=== PATIENT | female | born 1995 | race Caucasian/White ===

== ENCOUNTER 2022-06-13 19:30 | Outpatient (CLI) | payer BC | END 2022-06-13 19:31 | disposition home or self-care (01) | LOC: SLEEPLAB 19:30 | PROVIDERS: ATTEND Student in an Organized Health Care Education/Training Program | DX: G47.33 Obstructive sleep apnea (adult) (pediatric) (principal); R53.83 Other fatigue; R06.83 Snoring; G47.00 Insomnia, unspecified | CPT/HCPCS: 95810 ==